=== PATIENT | female | born 1965 | race Caucasian/White ===

== ENCOUNTER → 2016-08-19 | Outpatient (CLI) | payer BC ==
--- NOTE | 2016-08-20 09:38 | MM ---
Reason for exam: screening (asymptomatic). Last mammogram was performed 1 year and 1 month ago. Physical Findings: A clinical breast exam by your physician is recommended on an annual basis and results should be correlated with mammographic findings. MG 3D Screening Mammo W/Cad Bilateral CC and MLO view(s) were taken. Prior study comparison: July 10, 2015, bilateral MG 3d screening mammo w/cad. April 24, 2008, mammogram, performed at [facility]. There are scattered fibroglandular densities. There is no discrete abnormality. ASSESSMENT: Negative, BI-RAD 1 RECOMMENDATION: Routine screening mammogram of both breasts in 1 year.
== END | disposition home or self-care (01) ==
LOC: RADMAMWWP 11:05
PROVIDERS: ATTEND Family Medicine
DX: Z12.31 Encounter for screening mammogram for malignant neoplasm of breast (principal)
CPT/HCPCS: 77063; G0202

== ENCOUNTER → 2018-05-03 | Outpatient (CLI) | payer BC ==
--- NOTE | 2018-05-03 17:17 | US ---
EXAMINATION TYPE: US venous doppler duplex LE LT DATE OF EXAM: 05/03/2018 5:04 PM COMPARISON: NONE CLINICAL HISTORY: M25.562 Pain in lt knee,M71.22 SYNOVAL CYST OF POPLITEAL SPA. Pt states left leg pa in and swelling SIDE PERFORMED: Left TECHNIQUE: The lower extremity deep venous system is examined utilizing real time linear array sonog damir with graded compression, doppler sonography and color-flow sonography. VESSELS IMAGED: External Iliac Vein (EIV) Common Femoral Vein Deep Femoral Vein Greater Saphenous Vein * Femoral Vein Popliteal Vein Small Saphenous Vein * Proximal Calf Veins (* superficial vessels) Left Leg: Negative for DVT, complex Duran's cyst left pop fossa= 7.9 x 3.1 x 4.5 cm Attempted to call Dr's office at time of exam, office closed IMPRESSION: No evidence of deep venous thrombosis in the left leg. Large complex popliteal cyst noted .
== END | disposition home or self-care (01) ==
LOC: RADUSWWP 16:44
PROVIDERS: ATTEND Orthopaedic Surgery Sports Medicine
DX: M71.22 Synovial cyst of popliteal space [Baker], left knee (principal); M17.12 Unilateral primary osteoarthritis, left knee

== ENCOUNTER → 2021-07-06 | Outpatient (CLI) | payer BC ==
--- NOTE | 2021-07-08 13:16 | MM ---
Reason for exam: screening (asymptomatic). Last mammogram was performed 4 years and 10 months ago. History: Patient is postmenopausal. Physical Findings: A clinical breast exam by your physician is recommended on an annual basis and results should be correlated with mammographic findings. MG 3D Screening Mammo W/Cad Bilateral CC and MLO view(s) were taken. Prior study comparison: August 19, 2016, bilateral MG 3d screening mammo w/cad. July 10, 2015, bilateral MG 3d screening mammo w/cad. The breast tissue is almost entirely fat. No significant changes when compared with prior studies. ASSESSMENT: Negative, BI-RAD 1 RECOMMENDATION: Routine screening mammogram of both breasts in 1 year.
== END | disposition home or self-care (01) ==
LOC: RADMAMWWP 10:56
PROVIDERS: ATTEND Family Medicine
DX: Z12.31 Encounter for screening mammogram for malignant neoplasm of breast (principal); Z78.0 Asymptomatic menopausal state
CPT/HCPCS: 77063; 77067

== ENCOUNTER → 2021-12-31 | Outpatient (CLI) | payer BC ==
--- NOTE | 2021-12-31 09:18 | BD ---
EXAMINATION TYPE: Axial Bone Density DATE OF EXAM: 12/31/2021 COMPARISON: NONE CLINICAL HISTORY: 56 years year old Female. ICD-10 CODE: Z78.0 ASYMPTOMATIC MENOPAUSAL STATE, K21.9 GERD Height: 173.8 Weight: 63 FRAX RISK QUESTIONS: Alcohol (3 or more units per day): NO Family History (Parent hip fracture): NO Glucocorticoids (More than 3mos): NO History of Fracture in Adulthood: NO Secondary Osteoporosis: 1. Type 1 Diabetes: NO 2. Hyperthyroidism: NO 3. Menopause before 45: NO 4. Malnutrition: NO 5. Chronic liver disease: NO Rheumatoid Arthritis: YES Current Tobacco Use: NO RISK FACTORS HISTORY OF: Hip Fracture (Right/Left): NO Spine Fracture: NO History of Wrist Fracture: NO Surgery to Spine/Hip(right/left)/Wrist (right/left): NO Family History of Osteoporosis: YES, MOTHER Active: YES Diet low in dairy products/other sources of calcium: YES Postmenopausal woman: YES Take estrogen and/or progesterone medications: NO Lost more than 2 inches in height since high school: NO Frequent falls: NO Poor Health: NO Hyperparathyroidism: NO Adrenal Insufficiency: NO MEDICATIONS: Prednisone or other steroids: NO Thyroid Medications: NO Osteoporosis Medications: NO Additional Medications: CHOLESTEROL MEDS, RA MEDS, BP MEDS, EXAM MEASUREMENTS: Bone mineral densitometry was performed using the [employer]. Bone mineral density as measured about the Lumbar spine is: ----- L1-L4(G/cm2): 1.077 T Score Values are as follows: ----- L1: -1.4 ----- L2: -0.1 ----- L3: -0.3 ----- L4: -1.6 ----- L1-L4: -0.9 BASELINE STUDY Bone mineral density about the R hip (g/cm2): 0.864 Bone mineral density about the L hip (g/cm2): 0.860 T Score values are as follows: -----R Neck: -1.2 -----L Neck: -1.3 -----R Total: -0.3 -----L Total: -0.1 BASELINE STUDY FRAX%s: The graph provided illustrates a 8.0% chance for a major osteoporotic fx and a 0.6% chance fo r the hips probability for fx in 10 years time. IMPRESSION: Normal (Values between +1 and -1 indicate normal bone mass). Consider repeating this study in 5 year s or sooner if there is some new clinical indication. NOTE: T-SCORE=SD OF THE YOUNG ADULT MEAN.
--- NOTE | 2022-01-01 09:12 | FL ---
COMPARISON: NONE DATE OF EXAM: 12/31/2021 HISTORY: Dysphasia A number of thin and thick substances were ingested under the care of the department of speech pathol ogy. There is no evidence of aspiration or penetration. There is no evidence of obstruction. 31 sec onds of fluoroscopy and one image submitted. IMPRESSION: 1. No evidence of aspiration or penetration.
== END | disposition home or self-care (01) ==
LOC: RADBDWWP 07:52
PROVIDERS: ATTEND Family Medicine
DX: K21.9 Gastro-esophageal reflux disease without esophagitis (principal); R47.02 Dysphasia; Z78.0 Asymptomatic menopausal state
CPT/HCPCS: 74230; 77080

== ENCOUNTER → 2023-06-08 | Outpatient (CLI) | payer BC ==
--- NOTE | 2023-06-08 15:23 | US ---
EXAMINATION TYPE: US abdomen complete DATE OF EXAM: 06/08/2023 COMPARISON: NONE CLINICAL INDICATION: Female, 58 years old with history of K21.9 GASTRO-ESOPHAGEAL REFLUX DISEASE WITH OUT ESO; reflux pain TECHNIQUE: Multiple sonographic images of the abdomen are obtained. FINDINGS: EXAM MEASUREMENTS: Liver Length: 15.2 cm Gallbladder Wall: .3 cm CBD: .5 m Spleen: 10 cm Right Kidney: 10.9 x 4.6 x 4.6 cm Left Kidney: 11 x 4.4 x 3.6 cm Pancreas: Suboptimal visualization of the pancreatic tail due to shadowing from bowel gas. Visualize d head and body show no gross abnormal mobility. Liver: Markedly increased echogenicity. There is far field attenuation. No focal lesion seen. Gallbladder: No stones seen Evidence for sonographic Puente's sign: No CBD: wnl Spleen: wnl Right Kidney: wnl Left Kidney: wnl Upper IVC: wnl Abd Aorta: wnl IMPRESSION: 1. Moderate to severe hepatic steatosis. Appropriate clinical management is advised. 2. No gallstones or biliary ductal dilatation.
== END | disposition home or self-care (01) ==
LOC: RADUSWWP 12:01
PROVIDERS: ATTEND Family Medicine
DX: K76.0 Fatty (change of) liver, not elsewhere classified (principal); K21.9 Gastro-esophageal reflux disease without esophagitis
CPT/HCPCS: 76700

== ENCOUNTER → 2023-07-04 | Outpatient (CLI) | payer BC ==
--- NOTE | 2023-07-04 14:24 | XR ---
EXAMINATION TYPE: XR sternum DATE OF EXAM: 07/04/2023 COMPARISON: NONE HISTORY: 58-year-old female R07.2, precordial pain TECHNIQUE: 2 views FINDINGS: No depressed or angulated sternal fracture is identified. The sternoclavicular joints appea r symmetric and intact. IMPRESSION: No specific radiographic abnormality of the sternum.
== END | disposition home or self-care (01) ==
LOC: RADXRMAIN 10:08
PROVIDERS: ATTEND Family Medicine
DX: R07.2 Precordial pain (principal)
CPT/HCPCS: 71120